=== PATIENT | female | born 2000 | race Caucasian/White ===

== ENCOUNTER 2022-04-24 20:05 | Emergency (ER) | payer SELFPAY ==
[~2022-04-24] VITALS: Ht 172.7 cm; Wt 71.7 kg
[2022-04-24 23:19] VITALS: BP 114/60
--- NOTE | 2022-04-24 23:22 | NUR ---
SWABS COLLETCED PT SENT TO [facility].
--- NOTE | 2022-04-25 02:10 | NUR ---
PT ASSESSED BY ERMD IN TRIAGE.
[2022-04-25] MEDS ORDERED: DEXAMETHASONE 4 MG TAB PO ONE (02:15)
[2022-04-25] MEDS ORDERED: AMOX500C25 PO (02:18)
[2022-04-25 02:25] VITALS: BP 114/60
--- NOTE | 2022-04-25 02:25 | NUR ---
Patient discharged with v/s stable. Written and verbal after care instructions given and explained. Patient alert, oriented and verbalized understanding of instructions. Ambulatory with steady gait. All questions addressed prior to discharge. ID band removed. Patient advised to follow up with PMD. Rx of AMOXCILLIN given. Patient educated on indication of medication including possible reaction and side effects. Opportunity to ask questions provided and answered.
== END 2022-04-25 02:25 | disposition home or self-care (01) ==
LOC: MED 20:05
DX: J02.0 Streptococcal pharyngitis (principal)
CPT/HCPCS: 87081; 99283